=== PATIENT | female | born 2000 | race Caucasian/White ===

== ENCOUNTER 2020-04-05 11:53 | Emergency (ER) | payer OTHER, SELFPAY ==
[2020-04-05 11:57] VITALS: BP 159/84; PULSE 127; RESP 16; TEMP 37.1; O2SAT 99; BMI 25.8
[2020-04-05 14:11] LABS: Add Manual Diff / Slide Review NO; Basophils Absolute Auto 100 /uL (0-100); Basophils Percent Auto 0.5 % (0-2); Eosinophils Absolute Auto 100 /uL (0-450); Eosinophils Percent Auto 0.9 % (2-4); Hematocrit 40.8 % (36-46); Hemoglobin 13.8 g/dL (12.0-16.0); Lymphocytes Absolute Auto 2300 /uL (1100-4500); Lymphocytes Percent Auto 22.5 % (25-40); Mean Corpuscular HGB Conc 33.8 % (30-36); Mean Corpuscular Hemoglobin 29.5 PG (26-34); Mean Corpuscular Volume 87.3 fL (80-100); Monocytes Absolute Auto 500 /uL (0-900); Neutrophils Absolute Auto 7200 /uL (1500-7000); Neutrophils Percent Auto 71.1 % (50-75); Platelet Count 254 X10^3/uL (150-400); Red Blood Cell Count 4.68 X10^6/uL (4.0-5.2); White Blood Cell Count 10.1 X10^3/uL (4.5-11.0)
[2020-04-05 14:19] LABS: Alanine Aminotransferase 14 IU/L (<35); Albumin 4.6 g/dL (3.5-5.0); Albumin Globulin Ratio 1.3 (1.0-2.8); Alkaline Phosphatase 60 U/L (38-126); Aspartate Aminotransferase 24 IU/L (14-36); BUN Creatinine Ratio 17.2 (6-22); Bilirubin Total 0.4 mg/dL (0.2-1.3); Blood Urea Nitrogen 11 mg/dL (7-17); Calcium 9.8 mg/dL (8.4-10.2); Carbon Dioxide 27 mmol/L (22-32); Chloride 107 mmol/L (98-107); Estimated Glomerular Filt Rate > 60.0 mL/min (>60); Globulin 3.5 g/dL (1.7-4.1); Glucose 112 mg/dL (70-100); HEMOLYSIS < 15 (0-50); Potassium 3.9 mmol/L (3.4-5.1); Sodium 138 mmol/L (137-145); Total Protein 8.1 g/dL (6.3-8.2)
[2020-04-05] MEDS: ONDANSETRON 4 MG/2 ML INJ IV (14:20)
[2020-04-05] MEDS: SODIUM CHLORIDE 0.9% 1,000 ML 1000 ML IV (14:20)
[2020-04-05] MEDS: MECLIZINE HCL 12.5 MG TABLET 25 MG PO (14:21)
--- NOTE | 2020-04-05 14:26 | ED_ITS ---
HPI - Dizziness <RAJEEV Hollis - Last Filed: 04/05/20 16:48> General Chief Complaint: Dizziness Stated Complaint: dizzyness for 48 hours Time Seen by Provider: 04/05/20 12:13 Source: patient Mode of arrival: Ambulatory Limitations: no limitations History of Present Illness HPI Narrative: 19yo female presents emergency department complaining of sudden onset of dizziness that started approximately 48 hours ago. She states the dizziness developed when she turns her head. She states it is worse when she turns her head to the right or goes from a lying to sitting. Patient states she noticed some intermittent pain in her left ear yesterday which spontaneously resolved, also reports intermittent right right ear pain that has resolved. Related Data Previous Rx's Medication Instructions Recorded norgestimate 0.25 mg-ethinyl 1 tab PO QDAY #336 tab 10/29/17 estradiol 35 mcg tablet meclizine 12.5 mg PO TID PRN #10 tab 04/05/20 Allergies Allergy/AdvReac Type Severity Reaction Status Date / Time No Known Drug Allergies Allergy Verified 10/29/17 14:54 Review of Systems <RAJEEV Hollis - Last Filed: 04/05/20 16:48> Review of Systems Narrative: REVIEW OF SYSTEMS: GENERAL: Denies fever. HENT: No head trauma. Does report intermittent ear pain. RESPIRATORY: No cough or shortness of breath. GASTROINTESTINAL: No nausea nausea or vomiting. GENITOURINARY: No flank pain or dysuria. MUSCULOSKELETAL: No pain, weakness, or deformities. INTEGUMENTARY: No rash. NEURO: Reports vertigo, see HPI. PSYCH: No behavior or mood changes. Patient History <RAJEEV Hollis - Last Filed: 04/05/20 16:48> Medical History No significant medical problems Social History Smoking Status: Never smoker Smoking Status: Never smoker alcohol intake frequency: a few times a month Substance Use Type: does not use Exam <RAJEEV Hollis - Last Filed: 04/05/20 16:48> Initial Vital Signs Initial Vital Signs: Vital Signs Temperature 98.7 F 04/05/20 11:57 Pulse Rate 127 H 04/05/20 11:57 Respiratory Rate 16 04/05/20 11:57 Blood Pressure 159/84 H 04/05/20 11:57 Pulse Oximetry 99 04/05/20 11:57 PHYSICAL EXAMINATION: GENERAL: Well groomed, alert, and cooperative. Answers questions promptly and appropriately. Vital signs noted. HENT: Normocephalic, atraumatic. Ear canals patent. Oral mucosa is pink and moist. TMs intact with crisp light reflex. EYES: PERRLA, EOMIs, Conjunctiva pink, sclera white, no periorbital swelling. No nystagmus CHEST: Normal to inspection and without deformities. CARDIOVASCULAR: S1 and S2 sounds normal. Regular rate and rhythm, no murmurs, clicks, or bruits. No pedal edema. RESPIRATORY: Normal respiratory rate, trachea midline, airway patent. No stridor, nasal flaring or accessory muscle use. Lungs are clear in all calixto without wheeze, rhonchi, or crackles. GASTROINTESTINAL: Bowel sounds normoactive. Abdomen is soft and non-tender. No organomegaly. MUSCULOSKELETAL: Normal gait and coordination. Equal tone and mass bilaterally. EXTREMITIES: CMS intact. Moves all extremities. SKIN: Warm, dry, soft, appropriate color for ethnicity. No lesions, rashes, or wounds. NEURO: Alert and Oriented X 3. Good coordination. No ataxia, or sensory deficits, or cognitive issues. Worsening symptoms with rotation of head to the left. PSYCH: Appropriate affect and mood. <Harleen Erazo MD - Last Filed: 04/06/20 07:35> Initial Vital Signs Initial Vital Signs: Vital Signs Temperature 98.7 F 04/05/20 11:57 Pulse Rate 127 H 04/05/20 11:57 Respiratory Rate 16 04/05/20 11:57 Blood Pressure 159/84 H 04/05/20 11:57 Pulse Oximetry 99 04/05/20 11:57 Course <RAJEEV Hollis - Last Filed: 04/05/20 16:48> Course Course Narrative: Patient reports improved symptoms after administration of fluids and meclizine. Orders Ordered: Discontinued Medications Sodium Chloride (Normal Saline 0.9%) 1,000 mls @ 1,000 mls/hr IV BOLUS ONE Stop: 04/05/20 15:04 Last Admin: 04/05/20 14:20 Dose: 1,000 mls/hr Documented by: ROMA Meclizine HCl (Meclizine Hcl 12.5 Mg Tablet) 25 mg PO NOW ONE Stop: 04/05/20 14:06 Last Admin: 04/05/20 14:21 Dose: 25 mg Documented by: CYR Ondansetron HCl (Ondansetron 4 Mg/2 Ml Inj) 4 mg IV NOW ONE Stop: 04/05/20 14:06 Last Admin: 04/05/20 14:20 Dose: 4 mg Documented by: SUMMERONER Vital Signs Vital signs: Vital Signs - 8 hr 04/05/20 11:57 04/05/20 15:22 04/05/20 15:30 Temperature 98.7 F Pulse Rate 127 H 101 H 88 Respiratory Rate 16 18 20 Blood Pressure 159/84 H 136/77 Pulse Oximetry 99 100 100 <Harleen Erazo MD - Last Filed: 04/06/20 07:35> Orders Ordered: Discontinued Medications Sodium Chloride (Normal Saline 0.9%) 1,000 mls @ 1,000 mls/hr IV BOLUS ONE Stop: 04/05/20 15:04 Last Admin: 04/05/20 14:20 Dose: 1,000 mls/hr Documented by: ROMA Meclizine HCl (Meclizine Hcl 12.5 Mg Tablet) 25 mg PO NOW ONE Stop: 04/05/20 14:06 Last Admin: 04/05/20 14:21 Dose: 25 mg Documented by: ROMA Ondansetron HCl (Ondansetron 4 Mg/2 Ml Inj) 4 mg IV NOW ONE Stop: 04/05/20 14:06 Last Admin: 04/05/20 14:20 Dose: 4 mg Documented by: CYR Vital Signs Vital signs: Vital Signs - 8 hr 04/05/20 11:57 04/05/20 15:22 04/05/20 15:30 Temperature 98.7 F Pulse Rate 127 H 101 H 88 Respiratory Rate 16 18 20 Blood Pressure 159/84 H 136/77 Pulse Oximetry 99 100 100 MDM - Dizziness <RAJEEV Hollis - Last Filed: 04/05/20 16:48> Medical Records Attestation: I reviewed the patient's medical records. Lab Data Attestation: I reviewed the patient's lab results. Result diagrams: 04/05/20 14:03 04/05/20 14:03 Labs: Lab Results 04/05/20 04/05/20 04/05/20 Range/Units 14:03 14:03 14:03 WBC 10.1 (4.5-11.0) X10^3/uL RBC 4.68 (4.0-5.2) X10^6/uL Hgb 13.8 (12.0-16.0) g/dL Hct 40.8 (36-46) % MCV 87.3 (80-100) fL MCH 29.5 (26-34) PG MCHC 33.8 (30-36) % RDW 13.0 (11.6-14.8) % Plt Count 254 (150-400) X10^3/uL Neut % (Auto) 71.1 (50-75) % Lymph % (Auto) 22.5 L (25-40) % [place] % (Auto) 5.0 (3-14) % Eos % (Auto) 0.9 L (2-4) % Baso % (Auto) 0.5 (0-2) % Neut # (Auto) 7200 H (8737-2551) /uL Lymph # (Auto) 2300 (5295-3708) /uL [place] # (Auto) 500 (0-900) /uL Eos # (Auto) 100 (0-450) /uL Baso # (Auto) 100 (0-100) /uL Sodium 138 (137-145) mmol/L Potassium 3.9 (3.4-5.1) mmol/L Chloride 107 (98-107) mmol/L Carbon Dioxide 27 (22-32) mmol/L BUN 11 (7-17) mg/dL Creatinine 0.64 (0.52-1.04) mg/dL Estimated GFR > 60.0 (>60) mL/min BUN/Creatinine Ratio 17.2 (6-22) Glucose 112 H (70-100) mg/dL Calcium 9.8 (8.4-10.2) mg/dL Total Bilirubin 0.4 (0.2-1.3) mg/dL AST 24 (14-36) IU/L ALT 14 (<35) IU/L Alkaline Phosphatase 60 (38-126) U/L Troponin I < 0.012 (0.01-0.034) ng/mL Total Protein 8.1 (6.3-8.2) g/dL Albumin 4.6 (3.5-5.0) g/dL Globulin 3.5 (1.7-4.1) g/dL Albumin/Globulin Ratio 1.3 (1.0-2.8) ECG Data Interpretation: 1519: Sinus rhythm, rate 97, NH interval 130, QTC 419. No ST elevation or ST depression. EKG also viewed by Dr. Erazo per protocol. MDM Narrative Medical decision making narrative: History and examination consistent with benign positional vertigo, as patient describes worsening symptoms with turning her head to the left and symptoms completely resolved after administration of fluids and meclizine. It is possible that some mild dehydration may have contributed to this as well. Patient initially presented with tachycardia, she states she is very anxious when coming to the hospital. This may be due to anxiety but also may be due to some dehydration. Rate returned to normal as 60-80 beats per minute post fluid administration. Less likely other acute etiology such as neurological issues due to normal neurological exam, no headaches. Electrolytes within normal limits, cardiac enzymes and EKG within normal limits. She was given a prescription for meclizine. Return precautions given for new or worsening symptoms. She agrees to plan of care verbalized understanding. <Harleen Erazo MD - Last Filed: 04/06/20 07:35> Lab Data Labs: Lab Results 04/05/20 04/05/20 04/05/20 Range/Units 14:03 14:03 14:03 WBC 10.1 (4.5-11.0) X10^3/uL RBC 4.68 (4.0-5.2) X10^6/uL Hgb 13.8 (12.0-16.0) g/dL Hct 40.8 (36-46) % MCV 87.3 (80-100) fL MCH 29.5 (26-34) PG MCHC 33.8 (30-36) % RDW 13.0 (11.6-14.8) % Plt Count 254 (150-400) X10^3/uL Neut % (Auto) 71.1 (50-75) % Lymph % (Auto) 22.5 L (25-40) % [place] % (Auto) 5.0 (3-14) % Eos % (Auto) 0.9 L (2-4) % Baso % (Auto) 0.5 (0-2) % Neut # (Auto) 7200 H (7703-8224) /uL Lymph # (Auto) 2300 (8802-4072) /uL [place] # (Auto) 500 (0-900) /uL Eos # (Auto) 100 (0-450) /uL Baso # (Auto) 100 (0-100) /uL Sodium 138 (137-145) mmol/L Potassium 3.9 (3.4-5.1) mmol/L Chloride 107 (98-107) mmol/L Carbon Dioxide 27 (22-32) mmol/L BUN 11 (7-17) mg/dL Creatinine 0.64 (0.52-1.04) mg/dL Estimated GFR > 60.0 (>60) mL/min BUN/Creatinine Ratio 17.2 (6-22) Glucose 112 H (70-100) mg/dL Calcium 9.8 (8.4-10.2) mg/dL Total Bilirubin 0.4 (0.2-1.3) mg/dL AST 24 (14-36) IU/L ALT 14 (<35) IU/L Alkaline Phosphatase 60 (38-126) U/L Troponin I < 0.012 (0.01-0.034) ng/mL Total Protein 8.1 (6.3-8.2) g/dL Albumin 4.6 (3.5-5.0) g/dL Globulin 3.5 (1.7-4.1) g/dL Albumin/Globulin Ratio 1.3 (1.0-2.8) Discharge Plan Departure Patient Disposition: Home Clinical Impression: Vertigo Instructions: DI for Vertigo Activity Restrictions/Additional Instructions: Thank you for entrusting me with your care today. As discussed, your laboratory work and EKG are non-remarkable. I suspect your symptoms are most likely caused by vertigo, this happens when the balance centers in your ear have crystals that cause irritation and spinning. Please take meclizine for the next 2-3 days to help with her symptoms. This prescription was sent to [facility] in [place]. Drink plenty of fluids. Follow-up with your primary care provider in the next 1-2 weeks for further evaluation if symptoms continue. Return emergency department for any new or worsening symptoms such as uncontrollable vomiting, chest pain, high fevers, or any other concerns. Prescriptions: New meclizine 12.5 mg tablet 12.5 mg PO TID PRN (Reason: vertigo) Qty: 10 RF: 0 No Action norgestimate-ethinyl estradiol [Sprintec (28)] 0.25-35 mg-mcg tablet 1 tab PO QDAY Qty: 336 RF: 0 <Harleen Erazo MD - Last Filed: 04/06/20 07:35> Cosign ED Attending Cosignature Attestation: I was immediately available in the department for consultation throughout this patient's visit. I agree with do cumentation as above. Harleen Erazo MD
[2020-04-05 14:30] LABS: Troponin I < 0.012 ng/mL (0.01-0.034)
[2020-04-05 15:22] VITALS: PULSE 101; RESP 18; O2SAT 100
[2020-04-05 15:30] VITALS: BP 136/77; PULSE 88; RESP 20; O2SAT 100
--- NOTE | 2020-05-31 11:19 | PC.NURSE ---
late entry. Normal saline stop time 1510.
== END 2020-04-05 16:05 | disposition home or self-care (01) ==
PROVIDERS: Emergency Provider Nurse Practitioner
DX: R42 Dizziness and giddiness (principal); F41.9 Anxiety disorder, unspecified
CPT/HCPCS: 36415; 80053; 84484; 85025; 93005; 96361; 96374; 99283; 99284; J2405